=== PATIENT | female | born 1990 | race Two or more races ===

== ENCOUNTER 2024-10-22 18:16 | Emergency (ER) | payer OTHER ==
[~2024-10-22] VITALS: Ht 152.4 cm; Wt 47.6 kg
[2024-10-22] MEDS ORDERED: GUAIFENESIN/DEXTROMETHORPHAN 10ML BLIST.PACK PO ONE (19:36)
[2024-10-22 20:13] LABS: HEMATOCRIT 37.9 % (36.0-45.00); HEMOGLOBIN 12.4 g/dL (12.0-15.00); MEAN CELL VOLUME 77.7 fL (80.00-100.00); MEAN CORPUSCULAR HEMOGLOBIN 25.4 pg (27.00-32.0); MEAN CORPUSCULAR HGB CONC 32.7 g/dl (32.0-36.0); PLATELET COUNT 285 K/uL (150-450); RED BLOOD COUNT 4.88 M/uL (4.00-6.00); RED CELL DISTRIBUTION WIDTH 15.4 % (11.5-14.5)
[2024-10-22] MEDS ORDERED: KETOROLAC TROMETHAMINE 60 MG VIAL IM ONE (21:36)
== END 2024-10-22 22:10 ==
LOC: ER 18:16
PROVIDERS: General Practice
DX: R53.81 Other malaise (principal); J06.9 Acute upper respiratory infection, unspecified; Z20.822 Contact with and (suspected) exposure to COVID-19; I10 Essential (primary) hypertension